=== PATIENT | male | born 1975 | race Caucasian/White ===

== ENCOUNTER 2023-10-14 11:23 | Outpatient (AMB) | payer OTHER, SELFPAY ==
--- NOTE | 2023-10-14 11:27 | MHC.PC.OV ---
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 Has not had a PCP for a few years. Has been getting pilar cyts removed through [facility]-last removal tomorrow. Roula Rosado. 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 1. Little interest or pleasure in doing things: not at all 2. Feeling down, depressed, or hopeless: not at all 3. Trouble falling or staying asleep, or sleeping too much: not at all 4. Feeling tired or having little energy: not at all 5. Poor appetite or overeating: not at all 6. Feeling bad about yourself - or that you are a failure or have let yourself or your family down: not at all 7. Trouble concentrating on things, such as reading the newspaper or watching television: not at all 8. Moving or speaking so slowly that other people could have noticed. Or the opposite - being so fidgety or restless that you have been moving around a lot more than usual: not at all 9. Thoughts that you would be better off or of hurting yourself in some way: not at all Total score: 0 Depression Screening Interpretation: Negative Depression Screening Done: Yes 17994 - PHQ-9 Billing: Yes Source: Developed by Drs. Brian Rey, Yissel Dutton, Isaías Au and colleagues, with an educational annie from [employer]. Thrive Questionnaire Date Thrive assessed: 10/14/23 I am a: Patient What is your living situation today?: I have a steady place to live Within the past 12 months, did the food you bought not last and you didn't have the money to get more?: Never true Within the past 12 months, did you worry whether your food would run out before you got money to buy more?: Never true Do you have trouble paying for medicines?: No Do you have trouble getting transportation to medical appointments?: No Do you have trouble paying your heating and electricity bill?: No Do you have trouble taking care of your child, family member or friend?: No Do you have trouble with day-to-day activities such as bathing, preparing meals, shopping, managing finances, etc.?: No Are you currently unemployed and looking for a job?: No Are you interested in more education?: No Please select the resources that you would like help with: None Currently or been in a relationship where the following occur: no concerns reported THRIVE Score: 0 AUDIT C Alcohol Use Questionnaire (AUDIT-C) 1. How often do you have a drink containing alcohol?: Never 3. How often do you have six or more drinks on one occasion?: Never Total Score: 0 Score Reviewed/Action Taken: No KESHIA-7 AMB Questionnaire KESHIA-7 Date KESHIA - 7 assessed: 10/14/23 Feeling nervous, anxious, or on edge: 0 = Not at all Not being able to stop or control worryin = Not at all Worrying too much about different things: 0 = Not at all Trouble relaxin = Not at all Being so restless that it is hard to sit still: 0 = Not at all Becoming easily annoyed or irritable: 0 = Not at all Feeling afraid as if something awful might happen: 0 = Not at all Total KESHIA-7 score (0-4 normal; 5-9 mild; 10-14 moderate; 15-21 severe): 0 Source: Developed by Drs. Brian Rey, Yissel Dutton, Isaías Au and colleagues, with an educational annie from [employer]. KESHIA-7 Assessment Billing KESHIA-7 Assessment Tool: KESHIA-7 Assessment 57005 Review of Systems Const Details: ROS CONSTITUTIONAL: Denies weight loss, fever and chills. HEENT: Denies changes in vision and hearing. RESPIRATORY: Denies SOB and cough. CV: Denies palpitations and CP GI: Denies abdominal pain, nausea, vomiting and diarrhea. : Denies dysuria and urinary frequency. MSK: Denies new myalgia and joint pain. SKIN: Denies rash and pruritus. NEUROLOGICAL: Denies headache PSYCHIATRIC: Denies recent changes in mood. Physical exam (Primary Care) Vital Signs: Last Vital Signs Temp 98.3 F 10/14/23 11:33 Pulse 83 10/14/23 11:33 Resp 14 10/14/23 11:33 BP 94/64 10/14/23 11:33 Pulse Ox 96 10/14/23 11:33 Oxygen Delivery Method Room Air 10/14/23 11:33 PHYSICAL EXAM: GENERAL: Alert and oriented x 3. NAD EYES: EOMI. Anicteric. HENT: Moist mucous membranes. No scleral icterus. No cervical lymphadenopathy. LUNGS: Clear to auscultation bilaterally. CARDIOVASCULAR: Regular rate and rhythm. No murmur. No JVD. ABDOMEN: Soft, non-tender +bs EXTREMITIES: No edema. Non-tender. SKIN: No rashes or lesions. Warm. NEUROLOGIC: No focal neurological deficits. CN II-XII grossly intact PSYCHIATRIC: Cooperative. Appropriate mood and affect BMI result Body Mass Index 26.3 Tobacco/Smoking Status: Tobacco use Status Tobacco use date assessed 10/14/23 10/14/23 11:30 Patient Tobacco Use Status Never used Tobacco 10/14/23 11:30 e-Cigarette/Vaping Use Never Used 10/14/23 11:30 PHQ-9: PHQ-9 Score PHQ-9: Total score 0 10/14/23 12:04 Depression Screening Interpretation: Negative Thrive Assessment: Date of Thrive Assessment Date Thrive assessed 10/14/23 10/14/23 11:56 Currently or been in a relationship where the following occur: no concerns reported Assessment and Plan Assessment & Plan (1) Screening, deficiency anemia, iron: Comment: Labs ordered Code(s): Z13.0 - Encounter for screening for diseases of the blood and blood-forming organs and certain disorders involving the immune mechanism (2) Screening for hyperlipidemia: Comment: labs ordered Code(s): Z13.220 - Encounter for screening for lipoid disorders (3) Screening for metabolic disorder: Code(s): Z13.228 - Encounter for screening for other metabolic disorders Plan: 48 y/o male presenting to psychiatric hospital care. past medical, surgical, social and family history reviewed. Orders: Orders Complete Blood Count Auto Diff Today Z13.0 - Encounter for screening for diseases of the blood and blood-forming organs and certain disorders involving the immune mechanism, Z13.220 - Encounter for screening for lipoid disorders, Z13.228 - Encounter for screening for other metabolic disorders Lipid Panel Today Z13.0 - Encounter for screening for diseases of the blood and blood-forming organs and certain disorders involving the immune mechanism, Z13.220 - Encounter for screening for lipoid disorders, Z13.228 - Encounter for screening for other metabolic disorders Comprehensive Met. Panel Today Z13.0 - Encounter for screening for diseases of the blood and blood-forming organs and certain disorders involving the immune mechanism, Z13.220 - Encounter for screening for lipoid disorders, Z13.228 - Encounter for screening for other metabolic disorders Coding Level of Care Code Tele New Pt Level 3 (15210) Complex EM visit Add On G2211 Diagnoses Screening, deficiency anemia, iron Z13.0 Screening for hyperlipidemia Z13.220 Screening for metabolic disorder Z13.228 Additional Codes KESHIA-7 Assessment Billing - KESHIA-7 Assessment Tool: KESHIA-7 Assessment [id number] ([id number])
[2023-10-14 11:33] VITALS: BP 94/64; PULSE 83; RESP 14; TEMP 36.8; O2SAT 96; BMI 26.3
== END 2023-10-14 12:02 | disposition home or self-care (01) ==
PROVIDERS: Visit Provider Internal Medicine
DX: Z00.00 Encounter for general adult medical examination without abnormal findings (principal); Z13.228 Encounter for screening for other metabolic disorders; Z13.0 Encounter for screening for diseases of the blood and blood-forming organs and certain disorders involving the immune mechanism; Z13.220 Encounter for screening for lipoid disorders
CPT/HCPCS: 99386

== ENCOUNTER 2024-08-18 10:21 | Outpatient (AMB) | payer OTHER, SELFPAY ==
--- NOTE | 2024-08-18 10:35 | A.OFFPC_ITS ---
Vital Signs 08/18/24 10:40 Height 5 ft 6 in Weight 158 lb 6 oz BMI 25.6 BP 102/64 Blood Pressure Location Lt brachial Position Sitting Respiration 12 Pulse 83 Pulse Source Pulse Oximeter Pulse Oximetry (%) 97 Oxygen Delivery Method Room Air Intake Visit Reasons: ultrasound results/ear pain Intake Note: ultrasound results. Right ear pain. Has resolved but wants both ears checked. Preparation Supervisor Freezing Required: No Allergies No Known Allergies Allergy (Verified 08/18/24 10:36) Medication List - Last Reconciled 08/24/24 by Sushila Espinosa MD carbamide peroxide 6.5% (Debrox) 5 drps otic (ear) right DAILY 7 days Tobacco use date assessed: 10/14/23 Dental Screening Dental Screen Date: 10/14/23 HPI HPI Comments History of Present Illness Details 48 year old male with no significant pas t medical history presenting for follow up Has been getting pilar cyts removed through [facility], Roula Rosado. She ordered xrays, u/s of the clavicle-there was slight left AC prominence compared to right. Patient denies pain in area. Says welling has subsided. Was having right ear discomfort -some improvement in last few days. No fevers. ROS see HPI PHYSICAL EXAM: GENERAL: Alert and oriented x 3. NAD EYES: EOMI. Anicteric. HENT: Moist mucous membranes. No scleral icterus. right TM obscured by right ear cerumen. Normal left TM and canal LUNGS: Clear to auscultation bilaterally. CARDIOVASCULAR: Regular rate and rhythm. No murmur. No JVD. ABDOMEN: Soft, non-tender +bs EXTREMITIES: No edema. Non-tender. SKIN: No rashes or lesions. Warm. NEUROLOGIC: No focal neurological deficits. CN II-XII grossly intact PSYCHIATRIC: Cooperative. 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 1. Little interest or pleasure in doing things: not at all 2. Feeling down, depressed, or hopeless: not at all 3. Trouble falling or staying asleep, or sleeping too much: not at all 4. Feeling tired or having little energy: not at all 5. Poor appetite or overeating: not at all 6. Feeling bad about yourself - or that you are a failure or have let yourself or your family down: not at all 7. Trouble concentrating on things, such as reading the newspaper or watching television: not at all 8. Moving or speaking so slowly that other people could have noticed. Or the opposite - being so fidgety or restless that you have been moving around a lot more than usual: not at all 9. Thoughts that you would be better off or of hurting yourself in some way: not at all Total score: 0 Source: Developed by Drs. Brian Rey, Yissel Dutton, Isaías Au and colleagues, with an educational annie from [employer]. Thrive Questionnaire Date Thrive assessed: 10/14/23 I am a: Patient What is your living situation today?: I have a steady place to live Within the past 12 months, did the food you bought not last and you didn't have the money to get more?: I choose not to answer this question Within the past 12 months, did you worry whether your food would run out before you got money to buy more?: I choose not to answer this question Do you have trouble paying for medicines?: I choose not to answer this question Do you have trouble getting transportation to medical appointments?: I choose not to answer this question Do you have trouble paying your heating and electricity bill?: I choose not to answer this question Do you have trouble taking care of your child, family member or friend?: I choose not to answer this question Do you have trouble with day-to-day activities such as bathing, preparing meals, shopping, managing finances, etc.?: I choose not to answer this question Are you currently unemployed and looking for a job?: I choose not to answer this question Are you interested in more education?: I choose not to answer this question Please select the resources that you would like help with: None Currently or been in a relationship where the following occur: I choose not to answer THRIVE Score: 0 AUDIT C Alcohol Use Questionnaire (AUDIT-C) 1. How often do you have a drink containing alcohol?: Never Total Score: 0 KESHIA-7 AMB Questionnaire KESHIA-7 Date KESHIA - 7 assessed: 10/14/23 Feeling nervous, anxious, or on edge: 0 = Not at all Not being able to stop or control worryin = Not at all Worrying too much about different things: 0 = Not at all Trouble relaxin = Not at all Being so restless that it is hard to sit still: 0 = Not at all Becoming easily annoyed or irritable: 0 = Not at all Feeling afraid as if something awful might happen: 0 = Not at all Total KESHIA-7 score (0-4 normal; 5-9 mild; 10-14 moderate; 15-21 severe): 0 Source: Developed by Drs. Brian Rey, Yissel Dutton, Isaías Au and colleagues, with an educational annie from [employer]. Physical exam (Primary Care) Vital Signs: Last Vital Signs Pulse 83 08/18/24 10:40 Resp 12 08/18/24 10:40 BP 102/64 08/18/24 10:40 Pulse Ox 97 08/18/24 10:40 Oxygen Delivery Method Room Air 08/18/24 10:40 BMI result Body Mass Index 25.6 Tobacco/Smoking Status: Tobacco use Status Tobacco use date assessed 10/14/23 08/18/24 10:36 Patient Tobacco Use Status Never used Tobacco 08/18/24 10:36 e-Cigarette/Vaping Use Never Used 08/18/24 10:36 PHQ-9: PHQ-9 Score PHQ-9: Total score 0 08/18/24 14:20 Thrive Assessment: Date of Thrive Assessment Date Thrive assessed 10/14/23 08/18/24 10:36 Currently or been in a relationship where the following occur: I choose not to answer Coding Level of Care Code Est Pt Level 4 (40350) Diagnoses Right ear impacted cerumen H61.21 No history of major surgery within 1 month Z78.9 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 Laterality: left Assessment & Plan Assessment & Plan (1) Right ear impacted cerumen: Code(s): H61.21 - Impacted cerumen, right ear Category: Medical Plan: Debrox x one week Return for nurse cleaning, right ear check (2) No history of major surgery within 1 month: Code(s): Z78.9 - Other specified health status Plan: reviewed (3) Acromioclavicular joint arthritis: Code(s): M19.019 - Primary osteoarthritis, unspecified shoulder Category: Medical Qualifiers: Laterality: left Qualified Code(s): M19.012 - Primary osteoarthritis, left shoulder Plan: Declines further imaging/ortho Medications: New carbamide peroxide 6.5% (Debrox) 5 drps otic (ear) right DAILY 7 days 15 mL 0RF
[2024-08-18 10:40] VITALS: BP 102/64; PULSE 83; RESP 12; O2SAT 97; BMI 25.6
== END 2024-08-18 10:51 | disposition home or self-care (01) ==
PROVIDERS: PCP Internal Medicine; Visit Provider Internal Medicine
DX: H61.21 Impacted cerumen, right ear (principal); Z78.9 Other specified health status; M19.012 Primary osteoarthritis, left shoulder

== ENCOUNTER → 2024-09-08 10:02 | Outpatient (BNVA) | payer OTHER, SELFPAY | PROVIDERS: PCP Internal Medicine; Visit Provider Internal Medicine | DX: H61.21 Impacted cerumen, right ear (principal) | CPT/HCPCS: 99211 ==

== ENCOUNTER 2025-02-23 11:13 | Outpatient (AMB) | payer OTHER, SELFPAY ==
--- NOTE | 2025-02-23 11:29 | MHC.PC.OV ---
Vital Signs 02/23/25 11:30 Height 5 ft 6 in Weight 160 lb BMI 25.8 BP 110/68 Blood Pressure Location Lt brachial Position Sitting Respiration 12 Pulse 83 Pulse Source Pulse Oximeter Pulse Oximetry (%) 98 Oxygen Delivery Method Room Air Intake Visit Reasons: cpe Intake Note: Physical Director Of Food And Nutrition Required: No Allergies No Known Allergies Allergy (Verified 02/23/25 11:29) Tobacco use date assessed: 02/23/25 Dental Screening Dental Screen Date: 02/23/25 Did you have a dental visit in the last 12 months?: Yes Did you have a dental problem in the last 6 months where you did not have access to dental care?: No Was dental information given to patient?: Patient has dentist HPI HPI Comments History of Present Illness Details 48 year old male with no significant past medical history presenting for CPE Had been getting pilar cyts removed through [facility], Roula Rosado. They have not recurred Intermittent low back pain, intermittent groin pain if active. Td today Colon cancer screening overdue-agreeable to cologuard ROS see HPI PHYSICAL EXAM: GENERAL: Alert and oriented x 3. NAD EYES: EOMI. Anicteric. HENT: Moist mucous membranes. No scleral icterus. LUNGS: Clear to auscultation bilaterally. CARDIOVASCULAR: Regular rate and rhythm. No murmur. No JVD. ABDOMEN: Soft, non-tender +bs EXTREMITIES: No edema. Non-tender. : Normal penis and testes SKIN: No rashes or lesions. Warm. NEUROLOGIC: No focal neurological deficits. CN II-XII grossly intact PSYCHIATRIC: Cooperative. 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 Current occupational exposures/hazards: No Cognitive needs: No Hearing needs: No Vision needs: No Questionnaire Thrive Questionnaire Date Thrive assessed: 08/18/24 I am a: Patient What is your living situation today?: I have a steady place to live Within the past 12 months, did the food you bought not last and you didn't have the money to get more?: I choose not to answer this question Within the past 12 months, did you worry whether your food would run out before you got money to buy more?: I choose not to answer this question Do you have trouble paying for medicines?: I choose not to answer this question Do you have trouble getting transportation to medical appointments?: I choose not to answer this question Do you have trouble paying your heating and electricity bill?: I choose not to answer this question Do you have trouble taking care of your child, family member or friend?: I choose not to answer this question Do you have trouble with day-to-day activities such as bathing, preparing meals, shopping, managing finances, etc.?: I choose not to answer this question Are you currently unemployed and looking for a job?: I choose not to answer this question Are you interested in more education?: I choose not to answer this question Please select the resources that you would like help with: None Currently or been in a relationship where the following occur: I choose not to answer THRIVE Score: 0 AUDIT C Alcohol Use Questionnaire (AUDIT-C) 1. How often do you have a drink containing alcohol?: Never 3. How often do you have six or more drinks on one occasion?: Never Total Score: 0 KESHIA-7 AMB Questionnaire KESHIA-7 Date KESHIA - 7 assessed: 10/14/23 Source: Developed by Drs. Brian Rey, Yissel Dutton, Isaías Au and colleagues, with an educational annie from [employer]. Physical exam (Primary Care) Vital Signs: Last Vital Signs Pulse 83 02/23/25 11:30 Resp 12 02/23/25 11:30 BP 110/68 02/23/25 11:30 Pulse Ox 98 02/23/25 11:30 Oxygen Delivery Method Room Air 02/23/25 11:30 BMI result Body Mass Index 25.8 Tobacco/Smoking Status: Tobacco use Status Tobacco use date assessed 02/23/25 02/23/25 11:34 Patient Tobacco Use Status Never used Tobacco 02/23/25 11:34 e-Cigarette/Vaping Use Never Used 02/23/25 11:34 Thrive Assessment: Date of Thrive Assessment Date Thrive assessed 08/18/24 02/23/25 11:34 Currently or been in a relationship where the following occur: I choose not to answer Coding Level of Care Code Est Pt Prev Care 40-64y(51670) Diagnoses Physical exam Z00.00 Assessment & Plan Assessment & Plan (1) Physical exam: Code(s): Z00.00 - Encounter for general adult medical examination without abnormal findings Plan CPE Interval history reviewed Preventive measures for age discussed Td today Cologuard ordered. Declines colonoscopy referral Labs ordered. Follow up one year or sooner prn Orders: Orders Lyme IgG/IgM w/reflex to WB Today M25.50 - Pain in unspecified joint Complete Blood Count Auto Diff Today Z13.0 - Encounter for screening for diseases of the blood and blood-forming organs and certain disorders involving the immune mechanism, Z13.220 - Encounter for screening for lipoid disorders, Z13.228 - Encounter for screening for other metabolic disorders Comprehensive Met. Panel Today Z13.0 - Encounter for screening for diseases of the blood and blood-forming organs and certain disorders involving the immune mechanism, Z13.220 - Encounter for screening for lipoid disorders, Z13.228 - Encounter for screening for other metabolic disorders Lipid Panel Today Z13.0 - Encounter for screening for diseases of the blood and blood-forming organs and certain disorders involving the immune mechanism, Z13.220 - Encounter for screening for lipoid disorders, Z13.228 - Encounter for screening for other metabolic disorders Referrals Cologuard Test Z12.11 - Encounter for screening for malignant neoplasm of colon, Z12.12 - Encounter for screening for malignant neoplasm of rectum
[2025-02-23 11:30] VITALS: BP 110/68; PULSE 83; RESP 12; O2SAT 98; BMI 25.8
== END 2025-02-23 12:03 | disposition home or self-care (01) ==
LOC: HO.HMCFM 11:13
PROVIDERS: PCP Internal Medicine; Visit Provider Internal Medicine
DX: Z00.00 Encounter for general adult medical examination without abnormal findings (principal)

== ENCOUNTER 2025-02-23 11:13 | Outpatient (REF) | payer OTHER, SELFPAY ==
[2025-02-23 14:11] LABS: MANUAL DIFF FLAG NO
[2025-02-23 14:26] LABS: Hematocrit 42.2 % (42.0-52.0); Hemoglobin 14.8 g/dl (14.0-18.0); Imm Gran Abs Auto 0.01 X10*3/uL (0.00-0.03); Imm Gran Pct Auto 0.2 % (0.0-0.4); Lymphocytes Absolute Auto 1.2 X10*3/uL (1.2-4.9); Mean Corpuscular HGB Conc 35.1 g/dl (31.0-36.0); Mean Corpuscular Hemoglobin 29.8 pg (27.0-33.0); Mean Corpuscular Volume 85.1 fL (80.0-98.0); NRBC Abs Auto 0.000 X10*3/uL (0.0-0.012); NRBC Pct Auto 0.0 /100WBC (0.0-0.2); Platelet Count 212 X10*3/uL (160-400); Red Blood Count 4.96 X10*6/uL (4.60-5.80); White Blood Count 4.5 X10*3/uL (4.8-10.8)
[2025-02-23 14:57] LABS: Alanine Aminotransferase 26 U/L (0-40); Albumin Level 4.6 g/dL (3.5-5.0); Alkaline Phosphatase 42 U/L (39-117); Anion Gap 10 (12-20); Aspartate Amino Transferase 24 U/L (5-37); Blood Urea Nitrogen 12 mg/dL (9-16); Calcium 10.0 mg/dL (8.4-10.2); Carbon Dioxide 27 mmol/L (22-29); Chloride 106 mmol/L (96-108); Cholesterol 161 mg/dL (<200); Estimated Glomerular Filt Rate > 60; HDL Cholesterol 39 mg/dL (>40); Potassium 4.3 mmol/L (3.3-5.1); Sodium 139 mmol/L (135-145); Total Protein 7.1 g/dL (6.5-8.0); Triglycerides 73 mg/dL (<150)
[2025-02-24 06:28] LABS: Lyme Abs Screen <0.90 index
== END 2025-02-23 11:14 | disposition home or self-care (01) ==
LOC: HO.WFDLDS 11:13
PROVIDERS: PCP Internal Medicine; Visit Provider Internal Medicine
DX: Z13.220 Encounter for screening for lipoid disorders (principal); Z13.228 Encounter for screening for other metabolic disorders; Z13.0 Encounter for screening for diseases of the blood and blood-forming organs and certain disorders involving the immune mechanism; Z00.00 Encounter for general adult medical examination without abnormal findings; M25.50 Pain in unspecified joint
CPT/HCPCS: 36415; 80053; 80061; 85025; 86617; 86618